=== PATIENT | female | born 1960 | race African-American/Black ===

== ENCOUNTER 2024-08-13 07:20 | Emergency (ER) | payer MEDICAID, OTHER ==
[~2024-08-13] VITALS: Ht 170.2 cm; Wt 85.0 kg
[~2024-08-13 07:20] MED LIST: ACET-3161 PO; ALBU2.5V13 NEB; CARI350T28 PO; IPRA42SP2 BOTHNSTRLS; TRAM50TA3
[2024-08-13 07:28] VITALS: BP 150/103; PULSE 67; RESP 18; TEMP 98.5; O2SAT 100
[2024-08-13 08:09] LABS: CLARITY URINE CLEAR (CLEAR); COLOR URINE YELLOW (YELLOW); GLUCOSE URINE NEGATIVE (NEGATIVE); KETONES URINE NEGATIVE (NEGATIVE); LEUKOCYTE ESTERASE URINE 3+ (NEGATIVE); NITRITE URINE NEGATIVE (NEGATIVE); OCCULT BLOOD URINE NEGATIVE (NEGATIVE); PROTEIN URINE NEGATIVE (NEGATIVE); SPECIFIC GRAVITY URINE 1.021 (1.005-1.030); UROBILINOGEN URINE 0.2 E.U./dL (0.2-1.0)
[2024-08-13 08:26] LABS: BACTERIA URINE 2+; SQUAMOUS EPITHELIAL CELL URINE 2+ /lpf (RARE/1+); WBC URINE 15-25 /hpf (0-2); YEAST URINE NONE SEEN
[2024-08-13] MEDS ORDERED: METR-167 MT (09:22)
[2024-08-13] MEDS ORDERED: METR70GE27 VG (09:26)
== END 2024-08-13 09:32 | disposition home or self-care (01) ==
LOC: ER 07:35
DX: A59.9 Trichomoniasis, unspecified (principal); J44.9 Chronic obstructive pulmonary disease, unspecified; Z88.1 Allergy status to other antibiotic agents; Z79.899 Other long term (current) drug therapy
CPT/HCPCS: 81003; 87210; 99283